=== PATIENT | male | born 1960 | race Caucasian/White ===

== ENCOUNTER 2021-04-25 11:31 | Observation (INO) | payer MEDICAID, SELFPAY ==
[~2021-04-25] VITALS: Ht 177.8 cm; Wt 72.7 kg
--- NOTE | 2021-04-25 11:47 | NUR ---
Placed in room 05 . Placed on baggage clerk, blood pressure machine and pulse oximeter. To gown for exam. Side rails up.
[2021-04-25 11:48] VITALS: BP_SYST 108
--- NOTE | 2021-04-25 12:10 | NUR ---
Pt brought by , A&Ox4, ambulatory, pt presents to ER with SOB, cough, congestion x 7 days and getting worse today, pt states he did not have covid vaccine , O2 90% roomair,temp 101.0, pt follows commands, skin pink and warm, cap refill <3, will cont to monitor.
--- NOTE | 2021-04-25 12:20 | NUR ---
Pt placed on 2L NC since O2 89%, notified
[2021-04-25 12:39] LABS: CALCIUM 8.1 mg/dL (8.4-11.0); CREATININE 1.02 mg/dL (0.55-1.30)
[2021-04-25 12:45] LABS: ALBUMIN 2.5 g/dL (3.4-4.8); TOTAL BILIRUBIN 0.7 mg/dL (0.0-1.0)
--- NOTE | 2021-04-25 13:36 | NUR ---
Dr Galvan evaluating patient at bedside
--- NOTE | 2021-04-25 14:45 | NUR ---
Pt A&Ox4, resquesting requesting water at this time, VSS, pt on NC 2 L saturation 94% at this time
[2021-04-25] MEDS ORDERED: AZITHROMYCIN 250 MG TABLET PO ONE (15:45)
[2021-04-25] MEDS ORDERED: LORazepam 2 MG/ML VIAL IVP PRN (15:45)
[2021-04-25] MEDS ORDERED: POTASSIUM CHLORIDE 20 MEQ TAB.PRT.SR PO PRN (15:45)
[2021-04-25] MEDS ORDERED: MUPIROCIN 2% TOPICAL OINTMENT 22 GM NS PRN (15:45)
[2021-04-25] MEDS ORDERED: ONDANSETRON HCL 4 MG/2 ML VIAL IVP PRN (15:45)
[2021-04-25] MEDS ORDERED: NACL 0.9% 1,000 ML IV ONE (15:45)
[2021-04-25] MEDS ORDERED: ZOLPIDEM TARTRATE 5 MG TABLET PO PRN (15:45)
[2021-04-25] MEDS ORDERED: MORPHINE 2 MG/ML INJ. SYRINGE IVP PRN ×2 (15:45)
[2021-04-25] MEDS ORDERED: DOCUSATE SODIUM 100 MG CAPSULE PO PRN (15:45)
[2021-04-25] MEDS ORDERED: MAGNESIUM SULFATE 50 ML IV PRN (15:45)
[2021-04-25] MEDS: DECADRON 4 MG TABLET PO SCH (16:24)
[2021-04-25 16:36] LABS: HEMATOCRIT 37.7 % (36-54); HEMOGLOBIN 13.4 g/dL (14.0-18.0); MEAN CORPUSCULAR HEMOGLOBIN 35 pg (27-31); MEAN CORPUSCULAR HGB CONC 36 % (32-36); MEAN CORPUSCULAR VOLUME 99 fL (79.0-98.0); PLATELET COUNT (AUTO) 80 K/uL (130-430); RED BLOOD CELL COUNT(AUTO) 3.79 MIL/uL (4.2-6.2); RED CELL DISTRIBUTION WIDTH 13.6 % (9.0-15.0); WHITE BLOOD COUNT (AUTO) 3.6 K/uL (4.8-10.8)
--- NOTE | 2021-04-25 17:38 | NUR ---
Oxygen increased 3 L NC since O2 90% at this time, well tolerated
--- NOTE | 2021-04-25 17:40 | NUR ---
Pt A&Ox4, afebrile, skin pink and warm, will cont to monitor.
[2021-04-25 18:06] LABS: BAND % (MANUAL) 12 % (0-6); BASOPHILS % (MANUAL) 0 % (0-2); EOSINOPHILS % (MANUAL) 0 % (0-7); LYMPHOCYTES % (MANUAL) 9 % (20-46); MONOCYTES % (MANUAL) 2 % (0-11)
--- NOTE | 2021-04-25 19:40 | NUR ---
Note sugey in ED - 04/25/21 at 2208 by SDEDCA Continue monitoring SBP to keep above 90, Levophed IV gtt standing by
--- NOTE | 2021-04-25 19:45 | NUR ---
VSS no s/s of acute distress O2 sat kept above 92% on 3 L NC
--- NOTE | 2021-04-25 21:05 | NUR ---
Transfer to Tele via ACLS protocol. Licensed nurse present. IV present no signs or symptoms of infiltration.
--- NOTE | 2021-04-25 21:05 | NUR ---
ADMISSION NOTE Received patient from ER via nick, received report from Edwardo LOPEZ. Patient admitted with diagnosis of Covid Pneumonia. Patient oriented to hospital routine, call light, toileting and safety-patient verbalized understanding.
--- NOTE | 2021-04-25 21:05 | NUR ---
Patient will be admitted to care of Dr. Neff. Admitted to Tele unit. Will go to room 127. Belongings list completed. Complete and up to date summary report printed. SBAR report to be given at bedside with opportunity for questions.
[2021-04-25 21:10] VITALS: BP_SYST 137
--- NOTE | 2021-04-25 22:10 | NUR ---
INITIAL NOTE PATIENT IS STABLE AND LAYING IN BED. PT IS ON 2L NC. CALL LIGHT IN REACH. PATIENT SUCCESSFULLY DEMONSTRATES USAGE OF CALL LIGHT. BED IS LOCKED AND AT THE LOWEST POSITION. PATIENT EDUCATED ON BED ALARM, PT REFUSED. WILL CONTINUE TO EDUCATE. FALL, SAFETY, ASPIRATION, AND RESPIRATORY PRECAUTIONS WILL BE IN PLACE THROUGHOUT THE SHIFT. PLAN OF CARE IS DISCUSSED WITH PATIENT. Addendum: 04/26/21 at 0108 by Fiona Aguilera RN PT IS ON NS IV @100 ONE TIME DOSE FROM THE ER.
--- NOTE | 2021-04-25 22:15 | NUR ---
CONSULTATION PAGED/CALLED Reason for Consultation: COVID PNA Person Who was Notified:FLACO Consulting Physician: FRANCESCA Voice Pathologist Specialty: ID Ordering Physician: ENEIDA
[2021-04-26 00:12] VITALS: BP_SYST 113
[2021-04-26 04:34] VITALS: BP_SYST 113
--- NOTE | 2021-04-26 06:12 | NUR ---
closing note patient is stable and laying in bed. no s/s of respiratory distress noted. call light in reach. bed is locked, alarmed, and at the lowest position. fall, safety, aspiration, and respiratory precautions has been in place throughout the shift. will continue to monitor until sbar report is endorsed to am nurse.
[2021-04-26 06:52] LABS: BASOPHILS % (AUTO) 0.1 % (0.0-2.0); HEMOGLOBIN 13.3 g/dL (14.0-18.0); LYMPHOCYTES # (AUTO) 0.1 K/uL (1.0-5.5); LYMPHOCYTES % (AUTO) 3.5 % (20.5-51.5); MEAN CORPUSCULAR HEMOGLOBIN 35 pg (27-31); MEAN CORPUSCULAR HGB CONC 35 % (32-36); MEAN CORPUSCULAR VOLUME 99 fL (79.0-98.0); MONOCYTES % (AUTO) 1.3 % (1.7-9.3); NEUTROPHILS # (AUTO) 3.5 K/uL (1.8-7.7); NEUTROPHILS % (AUTO) 95.1 % (40.0-70.0); PLATELET COUNT (AUTO) 90 K/uL (130-430); RED BLOOD CELL COUNT(AUTO) 3.82 MIL/uL (4.2-6.2); RED CELL DISTRIBUTION WIDTH 13.8 % (9.0-15.0); WHITE BLOOD COUNT (AUTO) 3.7 K/uL (4.8-10.8)
[2021-04-26 07:21] LABS: CALCIUM 8.3 mg/dL (8.4-11.0); CREATININE 0.85 mg/dL (0.55-1.30); POTASSIUM 4.1 mmol/L (3.5-5.1)
[2021-04-26 08:34] VITALS: BP_SYST 138
[2021-04-26] MEDS: AZITHROMYCIN 250 MG TABLET PO SCH (08:46)
[2021-04-26] MEDS: CHOLECALCIFEROL (VITAMIN D3) 2,000 UNIT TABLET PO SCH (08:47)
[2021-04-26] MEDS: ACETAMINOPHEN 325 MG TABLET PO PRN ×2 (08:47→19:48)
[2021-04-26] MEDS: ASCORBIC ACID 500 MG TABLET PO SCH (08:47)
[2021-04-26] MEDS ORDERED: ENOXAPARIN SODIUM 40 MG/0.4 ML SYRINGE SUBCUT SCH (09:00)
[2021-04-26 09:19] LABS: ERYTHROCYTE SEDIMENTATION RATE 86 MM/HR (0-15)
[2021-04-26 10:30] LABS: C-REACTIVE PROTEIN QUANT 14.4 mg/dL (0-0.5)
[2021-04-26] MEDS: cefTRIAXone 1 GM in D5W 50 ML IV SCH (11:21)
[2021-04-26 12:00] VITALS: BP_SYST 125
[2021-04-26 16:00] VITALS: BP_SYST 133
--- NOTE | 2021-04-26 17:00 | NUR ---
INFORMED INFORMED DR MA THAT PATIENT IS REFUSING MEDICATION
[2021-04-26] MEDS: DECADRON 4 MG TABLET PO SCH (18:23)
--- NOTE | 2021-04-26 19:15 | NUR ---
OPENING NOTES Patient resting in bed - no s/s pain or distress noted. Respirations even and unlabored - head of bed elevated. IV site patent - no s/s redness, infection, or infiltration. Bed locked and in lowest position. Call light within reach.
[2021-04-26] MEDS: APIXABAN 2.5 MG TABLET PO SCH (20:39)
[2021-04-26 21:37] VITALS: BP_SYST 107
--- NOTE | 2021-04-26 23:20 | NUR ---
PATIENT IV OUT Patient states "IV was stuck on bed rail and I tugged on it." Patient asked if it was ok to insert another IV site at the time - patient states "Do it tomorrow let the next shift handle it." Asked if it was okay to insert around morning time instead. Patient stated ok. Will attempt IV insertion at later time this shift.
[2021-04-27] VITALS: BP_SYST 112
--- NOTE | 2021-04-27 02:00 | NUR ---
ROUNDING NOTES Patient resting in bed - no s/s pain or distress noted. Respirations even and unlabored - head of bed elevated. IV site patent - no s/s redness, infection, or infiltration. Bed locked and in lowest position. Call light within reach
--- NOTE | 2021-04-27 05:42 | NUR ---
NEW IV INSERTED RFA 22G.
[2021-04-27 06:41] LABS: HEMATOCRIT 38.2 % (36-54); HEMOGLOBIN 13.3 g/dL (14.0-18.0); LYMPHOCYTES # (AUTO) 0.1 K/uL (1.0-5.5); LYMPHOCYTES % (AUTO) 3.5 % (20.5-51.5); MEAN CORPUSCULAR HEMOGLOBIN 35 pg (27-31); MEAN CORPUSCULAR HGB CONC 35 % (32-36); MEAN CORPUSCULAR VOLUME 100 fL (79.0-98.0); MONOCYTES # (AUTO) 0.1 K/uL (0.0-1.0); MONOCYTES % (AUTO) 2.1 % (1.7-9.3); NEUTROPHILS # (AUTO) 3.5 K/uL (1.8-7.7); NEUTROPHILS % (AUTO) 94.4 % (40.0-70.0); PLATELET COUNT (AUTO) 110 K/uL (130-430); RED BLOOD CELL COUNT(AUTO) 3.81 MIL/uL (4.2-6.2); RED CELL DISTRIBUTION WIDTH 14.1 % (9.0-15.0); WHITE BLOOD COUNT (AUTO) 3.7 K/uL (4.8-10.8)
[2021-04-27 07:00] VITALS: BP_SYST 110
[2021-04-27 08:00] VITALS: BP_SYST 120
[2021-04-27 08:19] LABS: CALCIUM 8.2 mg/dL (8.4-11.0); CREATININE 0.83 mg/dL (0.55-1.30); TOTAL BILIRUBIN 0.4 mg/dL (0.0-1.0)
--- NOTE | 2021-04-27 08:30 | NUR ---
NURSE REPORT REPORT OBTAINED FROM HIMA NURSE BARBARA AT 0745 AND THIS NURSE ASSUME CARE OF PATIENT. RECEIVED PATIENT AWAKE AND ALERT. VSS. AFEB. NO C/O PAIN OR DISCOMFORT. TELE MONITOR SHOWS SR 63.
[2021-04-27] MEDS ORDERED: ZIT250 PO (08:33)
[2021-04-27] MEDS ORDERED: DEXA6TAB5 PO (08:33)
[2021-04-27] MEDS ORDERED: APIX2.5T PO (08:33)
[2021-04-27] MEDS ORDERED: ASCO500T20 PO (08:33)
[2021-04-27 08:41] LABS: C-REACTIVE PROTEIN QUANT 23.1 mg/dL (0-0.5)
[2021-04-27] MEDS: cefTRIAXone 1 GM in D5W 50 ML IV SCH (09:33)
[2021-04-27] MEDS: AZITHROMYCIN 250 MG TABLET PO SCH (09:33)
[2021-04-27] MEDS: ASCORBIC ACID 500 MG TABLET PO SCH (09:33)
[2021-04-27] MEDS: CHOLECALCIFEROL (VITAMIN D3) 2,000 UNIT TABLET PO SCH (09:33)
[2021-04-27] MEDS: APIXABAN 2.5 MG TABLET PO SCH (10:06)
[2021-04-27 10:59] LABS: ERYTHROCYTE SEDIMENTATION RATE 87 MM/HR (0-15)
[2021-04-27] MEDS ORDERED: IVERMECTIN 3 MG TABLET PO ONE (11:30)
[2021-04-27 14:00] VITALS: BP_SYST 110
--- NOTE | 2021-04-27 14:06 | NUR ---
NURSE NOTES VS AT 1400- 97.4f- 74-18, BP 110/66, O2 SAT 89% WITH 3 L/MIN PER NASAL CANNULA. TAKEN OFF O2- RA AT 1402- HR 72, RESP 18; O2 SAT 88%. AT 1404, AMBULATING, O2 SAT 87%, HR 74, RESP 18. AT 1406, RESTING AFTER AMBULATING- O2 SAT 83%, HR 73, 18.
--- NOTE | 2021-04-27 15:14 | NUR ---
INFORMED WALI ORTIZ TO NOTIFY JOHN MART THAT PT IS OFF MONITOR.
[2021-04-27] MEDS: DECADRON 4 MG TABLET PO SCH ×2 (15:45→16:17)
[2021-04-27 16:00] VITALS: BP_SYST 112
--- NOTE | 2021-04-27 16:57 | NUR ---
CM note: the pt is on Oxygen 3L NC sat 83% at rest.
--- NOTE | 2021-04-27 19:20 | NUR ---
NURSE REPORT REPORT GIVEN TO NIGHT NURSE SHALINI TO ASSUME CARE OF PATIENT. SBAR GIVEN AND ALL QUESTIONS ANSWERED.
[2021-04-27 23:00] VITALS: BP_SYST 120
--- NOTE | 2021-04-27 23:07 | NUR ---
Discharge Summary Pt A/Ox4. Sating 90% on 3L nc. Discharge instructions explained, pt verbalized understanding. Home O2 delivered. All questions answered. Son picked up pt to return home. NR, RN
--- NOTE | 2021-05-08 15:43 | NUR ---
IV ADMINISTRATION END TIME (Observation Patients ONLY): LATE ENTRY: IVPB of Ceftriaxone started at 11:21 on 04/26 and ended at 11:21 IVPB of Ceftriaxone started at 09:33 on 04/27 and ended at 10:00 IV infusion of NS 100ml /hour started at 16:24 on 04/25 and ended at 23:00 prior to patient discharge.
== END 2021-04-27 22:40 | disposition home or self-care (01) ==
LOC: SED 11:31 → STU 15:41
PROVIDERS: ADMIT General Practice; ATTEND General Practice
DX: U07.1 COVID-19 (principal); J12.82 Pneumonia due to coronavirus disease 2019; A41.89 Other specified sepsis; J96.91 Respiratory failure, unspecified with hypoxia; D69.6 Thrombocytopenia, unspecified; E87.1 Hypo-osmolality and hyponatremia; E44.0 Moderate protein-calorie malnutrition; D72.825 Bandemia; R79.89 Other specified abnormal findings of blood chemistry; Z79.899 Other long term (current) drug therapy
CPT/HCPCS: 36415 ×3; 71045; 80048; 80053 ×2; 83036; 83605; 83735 ×2; 83880; 84145 ×2; 84484; 85007; 85025 ×2; 85027; 85379 ×3; 85651 ×2; 86140 ×2; 86710; 86803; 87040; 87426; 93005; 96361; 96365; 96376; 99291; G0378 ×3; J0696 ×2; J7050 ×2; J7060 ×2; J8540 ×3; Q0144 ×3; U0003; 96366

== ENCOUNTER 2021-04-30 15:33 | Inpatient (IN) | payer MEDICAID, SELFPAY ==
[~2021-04-30] VITALS: Ht 177.8 cm; Wt 69.9 kg
[~2021-04-30 15:33] MED LIST: APIX2.5T PO; ASCO500T20 PO; DEXA6TAB5 PO; ZIT250 PO
[2021-04-30 15:35] VITALS: BP_SYST 118
[2021-04-30] MEDS ORDERED: DEXAMETHASONE SOD PHOSPHATE 4 MG/ML VIAL IVP ONE (15:45)
[2021-04-30 16:25] LABS: BASOPHILS % (AUTO) 0.1 % (0.0-2.0); EOSINOPHILS # (AUTO) 0.1 K/uL (0.0-0.4); HEMATOCRIT 38.7 % (36-54); HEMOGLOBIN 13.5 g/dL (14.0-18.0); LYMPHOCYTES # (AUTO) 0.4 K/uL (1.0-5.5); LYMPHOCYTES % (AUTO) 14.2 % (20.5-51.5); MEAN CORPUSCULAR HEMOGLOBIN 35 pg (27-31); MEAN CORPUSCULAR HGB CONC 35 % (32-36); MEAN CORPUSCULAR VOLUME 101 fL (79.0-98.0); MONOCYTES % (AUTO) 1.3 % (1.7-9.3); NEUTROPHILS # (AUTO) 2.1 K/uL (1.8-7.7); NEUTROPHILS % (AUTO) 82.4 % (40.0-70.0); PLATELET COUNT (AUTO) 187 K/uL (130-430); RED BLOOD CELL COUNT(AUTO) 3.84 MIL/uL (4.2-6.2); WHITE BLOOD COUNT (AUTO) 2.6 K/uL (4.8-10.8)
[2021-04-30 16:45] LABS: ANION GAP 8 (5-15); CALCIUM 7.7 mg/dL (8.4-11.0); CHLORIDE 100 mmol/L (98-107); CREATININE 0.94 mg/dL (0.55-1.30); GLUCOSE 136 mg/dL (70-99); POTASSIUM 3.9 mmol/L (3.5-5.1); SODIUM SERUM 134 mmol/L (136-145); UREA NITROGEN, BLOOD 21 mg/dL (8-21)
[2021-04-30 16:50] LABS: ALANINE AMINOTRANSFERASE 89 U/L (12-78); ALBUMIN 1.9 g/dL (3.4-4.8); ASPARTATE AMINOTRANSFERASE 47 U/L (10-37); TOTAL BILIRUBIN 0.3 mg/dL (0.0-1.0)
[2021-04-30 16:52] LABS: GFR AFRICAN AMERICAN 105 mL/min (>90)
[2021-04-30 17:19] LABS: C-REACTIVE PROTEIN QUANT 14.9 mg/dL (0-0.5)
[2021-04-30] MEDS ORDERED: KCL 20 mEq in D5NS 1000 mL 1,000 ML IV ONE (20:05)
[2021-04-30] MEDS: KCL 20 mEq in D5NS 1000 mL 1,000 ML IV SCH (20:14)
[2021-04-30 21:00] VITALS: BP_SYST 121
[2021-04-30 22:00] VITALS: BP_SYST 124
[2021-04-30] MEDS ORDERED: cefTRIAXone 1 GM in D5W 50 ML IV SCH (22:15)
[2021-04-30] MEDS ORDERED: ACETAMINOPHEN 325 MG TABLET PO PRN (22:30)
[2021-04-30 23:00] VITALS: BP_SYST 132
[2021-04-30] MEDS ORDERED: cefTRIAXone 1 GM VIAL ONE (23:08)
[2021-04-30] MEDS ORDERED: AZITHROMYCIN 500 MG/VIAL (ZITHROMAX) IV ONE (23:08)
[2021-04-30] MEDS: AZITHROMYCIN 500 MG in NS 250 ML IV SCH (23:20)
[2021-04-30] MEDS: CHOLECALCIFEROL (VITAMIN D3) 5,000 UNIT TABLET PO SCH (23:21)
[2021-04-30] MEDS: ASCORBIC ACID 500 MG TABLET PO SCH (23:21)
[2021-04-30] MEDS: ENOXAPARIN SODIUM 40 MG/0.4 ML SYRINGE SUBCUT SCH (23:27)
[2021-05-01] VITALS (25 sets, daily range): BP systolic 96–138
[2021-05-01] MEDS: KCL 20 mEq in D5NS 1000 mL 1,000 ML IV SCH ×2 (04:30→17:55)
[2021-05-01 06:58] LABS: BASOPHILS % (AUTO) 0.1 % (0.0-2.0); EOSINOPHILS % (AUTO) 0.1 % (0.0-4.0); HEMATOCRIT 37.4 % (36-54); HEMOGLOBIN 12.8 g/dL (14.0-18.0); LYMPHOCYTES # (AUTO) 0.2 K/uL (1.0-5.5); LYMPHOCYTES % (AUTO) 8.1 % (20.5-51.5); MEAN CORPUSCULAR HEMOGLOBIN 34 pg (27-31); MEAN CORPUSCULAR HGB CONC 34 % (32-36); MEAN CORPUSCULAR VOLUME 101 fL (79.0-98.0); MONOCYTES % (AUTO) 1.6 % (1.7-9.3); NEUTROPHILS # (AUTO) 2.1 K/uL (1.8-7.7); NEUTROPHILS % (AUTO) 90.1 % (40.0-70.0); PLATELET COUNT (AUTO) 146 K/uL (130-430); RED BLOOD CELL COUNT(AUTO) 3.72 MIL/uL (4.2-6.2); RED CELL DISTRIBUTION WIDTH 14.1 % (9.0-15.0); WHITE BLOOD COUNT (AUTO) 2.3 K/uL (4.8-10.8)
[2021-05-01] MEDS: ALBUTEROL MDI INHALATION 8 GM INH INH SCH ×3 (07:00→15:55)
[2021-05-01 07:42] LABS: CALCIUM 8.2 mg/dL (8.4-11.0); CREATININE 0.76 mg/dL (0.55-1.30); POTASSIUM 4.6 mmol/L (3.5-5.1)
[2021-05-01] MEDS: CHOLECALCIFEROL (VITAMIN D3) 5,000 UNIT TABLET PO SCH (09:07)
[2021-05-01] MEDS: ASCORBIC ACID 500 MG TABLET PO SCH ×2 (09:07→21:43)
[2021-05-01] MEDS: DEXAMETHASONE SOD PHOSPHATE 10 MG/ML VIAL IVP SCH (09:08)
[2021-05-01] MEDS: ENOXAPARIN SODIUM 40 MG/0.4 ML SYRINGE SUBCUT SCH ×2 (09:09→21:44)
[2021-05-01] MEDS: FLUCONAZOLE 200 mg/ NS 100 ML IV SCH (12:13)
[2021-05-01] MEDS: PIPERACILLIN/TAZO 4.5GM/DEX-IS 100 ML IV SCH ×2 (17:55→21:46)
[2021-05-01] MEDS: AZITHROMYCIN 500 MG in NS 250 ML IV SCH (21:43)
[2021-05-02] VITALS (24 sets, daily range): BP systolic 92–147
[2021-05-02] MEDS: KCL 20 mEq in D5NS 1000 mL 1,000 ML IV SCH ×2 (05:44→12:44)
[2021-05-02] MEDS: PIPERACILLIN/TAZO 4.5GM/DEX-IS 100 ML IV SCH ×3 (05:44→22:00)
[2021-05-02] MEDS: ALBUTEROL MDI INHALATION 8 GM INH INH SCH ×4 (08:39→20:46)
[2021-05-02] MEDS: CHOLECALCIFEROL (VITAMIN D3) 5,000 UNIT TABLET PO SCH (09:23)
[2021-05-02] MEDS: ASCORBIC ACID 500 MG TABLET PO SCH ×2 (09:23→21:13)
[2021-05-02] MEDS: DEXAMETHASONE SOD PHOSPHATE 10 MG/ML VIAL IVP SCH (09:23)
[2021-05-02] MEDS: ENOXAPARIN SODIUM 40 MG/0.4 ML SYRINGE SUBCUT SCH ×2 (09:24→21:15)
[2021-05-02] MEDS: FLUCONAZOLE 200 mg/ NS 100 ML IV SCH (11:56)
[2021-05-02] MEDS: AZITHROMYCIN 500 MG in NS 250 ML IV SCH (21:12)
[2021-05-03] VITALS (23 sets, daily range): BP systolic 81–155
[2021-05-03] MEDS ORDERED: KCL 20 mEq in 100 mL (PREMIX) 100 ML IV ONE (03:00)
[2021-05-03] MEDS: KCL 20 mEq in D5NS 1000 mL 1,000 ML IV SCH ×3 (03:10→20:16)
[2021-05-03] MEDS: PIPERACILLIN/TAZO 4.5GM/DEX-IS 100 ML IV SCH ×3 (05:41→22:28)
[2021-05-03] MEDS: CHOLECALCIFEROL (VITAMIN D3) 5,000 UNIT TABLET PO SCH (08:53)
[2021-05-03] MEDS: ASCORBIC ACID 500 MG TABLET PO SCH ×2 (08:53→20:17)
[2021-05-03] MEDS: ENOXAPARIN SODIUM 40 MG/0.4 ML SYRINGE SUBCUT SCH ×2 (08:54→20:17)
[2021-05-03] MEDS: DEXAMETHASONE SOD PHOSPHATE 10 MG/ML VIAL IVP SCH (08:55)
[2021-05-03] MEDS: ALBUTEROL MDI INHALATION 8 GM INH INH SCH ×3 (09:12→15:00)
[2021-05-03] MEDS: FLUCONAZOLE 200 mg/ NS 100 ML IV SCH (15:23)
[2021-05-03] MEDS: AZITHROMYCIN 500 MG in NS 250 ML IV SCH (20:16)
[2021-05-04] VITALS (22 sets, daily range): BP systolic 94–148
[2021-05-04] MEDS: KCL 20 mEq in D5NS 1000 mL 1,000 ML IV SCH ×2 (04:45→20:27)
[2021-05-04] MEDS: PIPERACILLIN/TAZO 4.5GM/DEX-IS 100 ML IV SCH (06:53)
[2021-05-04] MEDS: ALBUTEROL MDI INHALATION 8 GM INH INH SCH ×4 (07:52→22:30)
[2021-05-04] MEDS: ENOXAPARIN SODIUM 40 MG/0.4 ML SYRINGE SUBCUT SCH ×2 (09:00→20:26)
[2021-05-04 09:58] LABS: EOSINOPHILS % (AUTO) 1.2 % (0.0-4.0); HEMATOCRIT 35.1 % (36-54); HEMOGLOBIN 12.1 g/dL (14.0-18.0); LYMPHOCYTES # (AUTO) 0.2 K/uL (1.0-5.5); MEAN CORPUSCULAR HEMOGLOBIN 34 pg (27-31); MEAN CORPUSCULAR HGB CONC 34 % (32-36); MEAN CORPUSCULAR VOLUME 100 fL (79.0-98.0); MONOCYTES % (AUTO) 1.2 % (1.7-9.3); NEUTROPHILS # (AUTO) 3.5 K/uL (1.8-7.7); NEUTROPHILS % (AUTO) 90.6 % (40.0-70.0); PLATELET COUNT (AUTO) 94 K/uL (130-430); RED BLOOD CELL COUNT(AUTO) 3.51 MIL/uL (4.2-6.2); RED CELL DISTRIBUTION WIDTH 14.4 % (9.0-15.0); WHITE BLOOD COUNT (AUTO) 3.9 K/uL (4.8-10.8)
[2021-05-04 10:18] LABS: ALBUMIN 1.8 g/dL (3.4-4.8); CALCIUM 7.8 mg/dL (8.4-11.0); CREATININE 0.94 mg/dL (0.55-1.30); POTASSIUM 3.8 mmol/L (3.5-5.1); TOTAL BILIRUBIN 0.7 mg/dL (0.0-1.0)
[2021-05-04] MEDS: ASCORBIC ACID 500 MG TABLET PO SCH ×2 (10:22→20:25)
[2021-05-04] MEDS: DEXAMETHASONE SOD PHOSPHATE 10 MG/ML VIAL IVP SCH (10:22)
[2021-05-04] MEDS: CHOLECALCIFEROL (VITAMIN D3) 5,000 UNIT TABLET PO SCH (10:22)
[2021-05-04] MEDS: FLUCONAZOLE 200 mg/ NS 100 ML IV SCH (13:08)
[2021-05-04] MEDS: cefTRIAXone 1 GM in D5W 50 ML IV SCH (13:10)
[2021-05-04 16:23] LABS: INR 1.3 (0.80-1.20); PROTHROMBIN TIME 13.9 SECS (9.5-12.5)
[2021-05-04] MEDS: AZITHROMYCIN 500 MG in NS 250 ML IV SCH (20:26)
[2021-05-05] VITALS (21 sets, daily range): BP systolic 90–128
[2021-05-05] MEDS: ALBUTEROL MDI INHALATION 8 GM INH INH SCH ×3 (07:12→19:58)
[2021-05-05 08:03] LABS: BASOPHILS % (AUTO) 0.8 % (0.0-2.0); EOSINOPHILS % (AUTO) 0.3 % (0.0-4.0); HEMOGLOBIN 12.5 g/dL (14.0-18.0); LYMPHOCYTES # (AUTO) 0.4 K/uL (1.0-5.5); LYMPHOCYTES % (AUTO) 10.6 % (20.5-51.5); MEAN CORPUSCULAR HEMOGLOBIN 34 pg (27-31); MEAN CORPUSCULAR HGB CONC 34 % (32-36); MEAN CORPUSCULAR VOLUME 100 fL (79.0-98.0); MONOCYTES % (AUTO) 0.9 % (1.7-9.3); NEUTROPHILS # (AUTO) 3.6 K/uL (1.8-7.7); NEUTROPHILS % (AUTO) 87.4 % (40.0-70.0); PLATELET COUNT (AUTO) 86 K/uL (130-430); RED BLOOD CELL COUNT(AUTO) 3.69 MIL/uL (4.2-6.2); WHITE BLOOD COUNT (AUTO) 4.1 K/uL (4.8-10.8)
[2021-05-05] MEDS: CHOLECALCIFEROL (VITAMIN D3) 5,000 UNIT TABLET PO SCH (08:05)
[2021-05-05] MEDS: DEXAMETHASONE SOD PHOSPHATE 10 MG/ML VIAL IVP SCH (08:05)
[2021-05-05] MEDS: ASCORBIC ACID 500 MG TABLET PO SCH ×2 (08:05→21:23)
[2021-05-05 08:17] LABS: CALCIUM 8.4 mg/dL (8.4-11.0); CREATININE 0.74 mg/dL (0.55-1.30)
[2021-05-05 08:22] LABS: ALBUMIN 1.9 g/dL (3.4-4.8); TOTAL BILIRUBIN 0.5 mg/dL (0.0-1.0)
[2021-05-05] MEDS: ENOXAPARIN SODIUM 40 MG/0.4 ML SYRINGE SUBCUT SCH ×2 (09:00→21:00)
[2021-05-05] MEDS: KCL 20 mEq in D5NS 1000 mL 1,000 ML IV SCH ×2 (09:39→16:15)
[2021-05-05] MEDS: FLUCONAZOLE 200 mg/ NS 100 ML IV SCH (11:20)
[2021-05-05] MEDS: cefTRIAXone 1 GM in D5W 50 ML IV SCH (11:21)
[2021-05-05] MEDS ORDERED: IVERMECTIN 3 MG TABLET PO ONE (11:30)
[2021-05-06] VITALS (19 sets, daily range): BP systolic 98–133
[2021-05-06] MEDS: KCL 20 mEq in D5NS 1000 mL 1,000 ML IV SCH ×2 (07:15→23:46)
[2021-05-06] MEDS: ALBUTEROL MDI INHALATION 8 GM INH INH SCH ×4 (07:23→20:17)
[2021-05-06 07:46] LABS: BASOPHILS % (AUTO) 0.2 % (0.0-2.0); EOSINOPHILS % (AUTO) 0.4 % (0.0-4.0); HEMATOCRIT 33.3 % (36-54); HEMOGLOBIN 11.6 g/dL (14.0-18.0); LYMPHOCYTES # (AUTO) 0.4 K/uL (1.0-5.5); LYMPHOCYTES % (AUTO) 10.5 % (20.5-51.5); MEAN CORPUSCULAR HEMOGLOBIN 35 pg (27-31); MEAN CORPUSCULAR HGB CONC 35 % (32-36); MEAN CORPUSCULAR VOLUME 99 fL (79.0-98.0); NEUTROPHILS # (AUTO) 3.4 K/uL (1.8-7.7); NEUTROPHILS % (AUTO) 87.9 % (40.0-70.0); PLATELET COUNT (AUTO) 73 K/uL (130-430); RED BLOOD CELL COUNT(AUTO) 3.36 MIL/uL (4.2-6.2); WHITE BLOOD COUNT (AUTO) 3.8 K/uL (4.8-10.8)
[2021-05-06 08:29] LABS: ALBUMIN 1.8 g/dL (3.4-4.8); C-REACTIVE PROTEIN QUANT 6.7 mg/dL (0-0.5); CALCIUM 7.7 mg/dL (8.4-11.0); CREATININE 0.72 mg/dL (0.55-1.30); TOTAL BILIRUBIN 0.6 mg/dL (0.0-1.0)
[2021-05-06] MEDS: BUDESONIDE 0.5 MG/2 ML AMPUL.NEB INH SCH ×2 (08:39→20:16)
[2021-05-06] MEDS: ENOXAPARIN SODIUM 40 MG/0.4 ML SYRINGE SUBCUT SCH ×2 (08:39→21:00)
[2021-05-06] MEDS: ASCORBIC ACID 500 MG TABLET PO SCH ×2 (08:47→22:24)
[2021-05-06] MEDS: CHOLECALCIFEROL (VITAMIN D3) 5,000 UNIT TABLET PO SCH (08:48)
[2021-05-06] MEDS: DEXAMETHASONE SOD PHOSPHATE 10 MG/ML VIAL IVP SCH (08:48)
[2021-05-06] MEDS ORDERED: BUDESONIDE 0.5 MG/2 ML AMPUL.NEB ONE (09:56)
[2021-05-06] MEDS: FLUCONAZOLE 200 mg/ NS 100 ML IV SCH (12:00)
[2021-05-06] MEDS: cefTRIAXone 1 GM in D5W 50 ML IV SCH (12:00)
[2021-05-07] VITALS (22 sets, daily range): BP systolic 95–139
[2021-05-07 07:16] LABS: BASOPHILS % (AUTO) 0.2 % (0.0-2.0); EOSINOPHILS # (AUTO) 0.1 K/uL (0.0-0.4); EOSINOPHILS % (AUTO) 1.6 % (0.0-4.0); HEMATOCRIT 34.2 % (36-54); HEMOGLOBIN 11.8 g/dL (14.0-18.0); LYMPHOCYTES # (AUTO) 0.4 K/uL (1.0-5.5); LYMPHOCYTES % (AUTO) 13.2 % (20.5-51.5); MEAN CORPUSCULAR HEMOGLOBIN 34 pg (27-31); MEAN CORPUSCULAR HGB CONC 35 % (32-36); MEAN CORPUSCULAR VOLUME 99 fL (79.0-98.0); MONOCYTES % (AUTO) 0.9 % (1.7-9.3); NEUTROPHILS # (AUTO) 2.9 K/uL (1.8-7.7); NEUTROPHILS % (AUTO) 84.1 % (40.0-70.0); PLATELET COUNT (AUTO) 79 K/uL (130-430); RED BLOOD CELL COUNT(AUTO) 3.46 MIL/uL (4.2-6.2); RED CELL DISTRIBUTION WIDTH 14.6 % (9.0-15.0); WHITE BLOOD COUNT (AUTO) 3.4 K/uL (4.8-10.8)
[2021-05-07 08:24] LABS: ALBUMIN 1.9 g/dL (3.4-4.8); CALCIUM 7.7 mg/dL (8.4-11.0); CREATININE 0.72 mg/dL (0.55-1.30); POTASSIUM 3.9 mmol/L (3.5-5.1); TOTAL BILIRUBIN 0.5 mg/dL (0.0-1.0)
[2021-05-07] MEDS: CHOLECALCIFEROL (VITAMIN D3) 5,000 UNIT TABLET PO SCH (08:29)
[2021-05-07] MEDS: ASCORBIC ACID 500 MG TABLET PO SCH ×2 (08:29→20:51)
[2021-05-07] MEDS: ENOXAPARIN SODIUM 40 MG/0.4 ML SYRINGE SUBCUT SCH ×2 (08:30→20:52)
[2021-05-07] MEDS: DEXAMETHASONE SOD PHOSPHATE 10 MG/ML VIAL IVP SCH (08:31)
[2021-05-07] MEDS: ALBUTEROL MDI INHALATION 8 GM INH INH SCH ×4 (09:06→22:41)
[2021-05-07] MEDS: BUDESONIDE 0.5 MG/2 ML AMPUL.NEB INH SCH ×2 (09:06→22:40)
[2021-05-07] MEDS: FLUCONAZOLE 200 mg/ NS 100 ML IV SCH (10:24)
[2021-05-07] MEDS: cefTRIAXone 1 GM in D5W 50 ML IV SCH (10:25)
[2021-05-07] MEDS: KCL 20 mEq in D5NS 1000 mL 1,000 ML IV SCH (10:25)
[2021-05-08] VITALS (23 sets, daily range): BP systolic 101–136
[2021-05-08] MEDS: KCL 20 mEq in D5NS 1000 mL 1,000 ML IV SCH ×2 (02:40→06:00)
[2021-05-08 06:44] LABS: EOSINOPHILS % (AUTO) 0.2 % (0.0-4.0); HEMATOCRIT 33.4 % (36-54); HEMOGLOBIN 11.5 g/dL (14.0-18.0); LYMPHOCYTES # (AUTO) 0.2 K/uL (1.0-5.5); LYMPHOCYTES % (AUTO) 6.9 % (20.5-51.5); MEAN CORPUSCULAR HEMOGLOBIN 34 pg (27-31); MEAN CORPUSCULAR HGB CONC 35 % (32-36); MEAN CORPUSCULAR VOLUME 99 fL (79.0-98.0); MONOCYTES % (AUTO) 1.1 % (1.7-9.3); NEUTROPHILS # (AUTO) 3.1 K/uL (1.8-7.7); NEUTROPHILS % (AUTO) 91.8 % (40.0-70.0); PLATELET COUNT (AUTO) 76 K/uL (130-430); RED BLOOD CELL COUNT(AUTO) 3.37 MIL/uL (4.2-6.2); RED CELL DISTRIBUTION WIDTH 14.1 % (9.0-15.0); WHITE BLOOD COUNT (AUTO) 3.4 K/uL (4.8-10.8)
[2021-05-08 07:34] LABS: ALBUMIN 1.8 g/dL (3.4-4.8); CREATININE 0.62 mg/dL (0.55-1.30); POTASSIUM 4.2 mmol/L (3.5-5.1); TOTAL BILIRUBIN 0.4 mg/dL (0.0-1.0)
[2021-05-08] MEDS: BUDESONIDE 0.5 MG/2 ML AMPUL.NEB INH SCH ×2 (07:54→19:40)
[2021-05-08] MEDS: ALBUTEROL MDI INHALATION 8 GM INH INH SCH ×4 (07:54→19:41)
[2021-05-08 08:26] LABS: TOTAL IRON BIND. CAPACITY 188 ug/dL (250-450)
[2021-05-08 09:00] LABS: RETICULOCYTE COUNT 1.5 % (0.5-1.5)
[2021-05-08] MEDS: DEXAMETHASONE SOD PHOSPHATE 10 MG/ML VIAL IVP SCH (09:46)
[2021-05-08] MEDS: ASCORBIC ACID 500 MG TABLET PO SCH ×2 (09:46→21:42)
[2021-05-08] MEDS: CHOLECALCIFEROL (VITAMIN D3) 5,000 UNIT TABLET PO SCH (09:47)
[2021-05-08] MEDS ORDERED: ENOXAPARIN SODIUM 40 MG/0.4 ML SYRINGE SUBCUT ONE (11:15)
[2021-05-08 11:37] LABS: C-REACTIVE PROTEIN QUANT 14.1 mg/dL (0-0.5)
[2021-05-08] MEDS: cefTRIAXone 1 GM in D5W 50 ML IV SCH (12:20)
[2021-05-08] MEDS: FLUCONAZOLE 200 mg/ NS 100 ML IV SCH (12:20)
[2021-05-09 06:35] LABS: BASOPHILS % (AUTO) 0.2 % (0.0-2.0); EOSINOPHILS % (AUTO) 0.1 % (0.0-4.0); HEMATOCRIT 29.8 % (36-54); HEMOGLOBIN 10.2 g/dL (14.0-18.0); LYMPHOCYTES # (AUTO) 0.2 K/uL (1.0-5.5); LYMPHOCYTES % (AUTO) 6.8 % (20.5-51.5); MEAN CORPUSCULAR HEMOGLOBIN 34 pg (27-31); MEAN CORPUSCULAR HGB CONC 34 % (32-36); MEAN CORPUSCULAR VOLUME 101 fL (79.0-98.0); MONOCYTES % (AUTO) 0.8 % (1.7-9.3); NEUTROPHILS # (AUTO) 3.2 K/uL (1.8-7.7); NEUTROPHILS % (AUTO) 92.1 % (40.0-70.0); PLATELET COUNT (AUTO) 81 K/uL (130-430); RED BLOOD CELL COUNT(AUTO) 2.96 MIL/uL (4.2-6.2); RED CELL DISTRIBUTION WIDTH 14.4 % (9.0-15.0); WHITE BLOOD COUNT (AUTO) 3.5 K/uL (4.8-10.8)
[2021-05-09 06:44] LABS: INR 1.3 (0.80-1.20); PROTHROMBIN TIME 14.1 SECS (9.5-12.5)
[2021-05-09 07:06] LABS: FOLATE (FOLIC ACID) 7.5 ng/mL (>3.0)
[2021-05-09] MEDS: ALBUTEROL MDI INHALATION 8 GM INH INH SCH ×4 (07:39→20:08)
[2021-05-09] MEDS: BUDESONIDE 0.5 MG/2 ML AMPUL.NEB INH SCH ×2 (07:39→20:08)
[2021-05-09 08:00] VITALS: BP_SYST 101
[2021-05-09 08:37] LABS: ALBUMIN 1.5 g/dL (3.4-4.8); CREATININE 0.6 mg/dL (0.55-1.30); POTASSIUM 3.7 mmol/L (3.5-5.1); TOTAL BILIRUBIN 0.3 mg/dL (0.0-1.0)
[2021-05-09 08:44] LABS: CALCIUM 7.1 mg/dL (8.4-11.0)
[2021-05-09] MEDS ORDERED: ENOXAPARIN SODIUM 40 MG/0.4 ML SYRINGE SUBCUT SCH (09:00)
[2021-05-09] MEDS: ASCORBIC ACID 500 MG TABLET PO SCH ×2 (09:17→21:39)
[2021-05-09] MEDS: CHOLECALCIFEROL (VITAMIN D3) 5,000 UNIT TABLET PO SCH (09:17)
[2021-05-09] MEDS: DEXAMETHASONE SOD PHOSPHATE 10 MG/ML VIAL IVP SCH (09:18)
[2021-05-09] MEDS: cefTRIAXone 1 GM in D5W 50 ML IV SCH (11:58)
[2021-05-09 12:00] VITALS: BP_SYST 112
[2021-05-09 16:00] VITALS: BP_SYST 119
[2021-05-09 19:00] VITALS: BP_SYST 119
[2021-05-09 20:00] VITALS: BP_SYST 119
[2021-05-10 06:30] VITALS: BP_SYST 113
[2021-05-10 06:55] LABS: BASOPHILS % (AUTO) 0.3 % (0.0-2.0); EOSINOPHILS % (AUTO) 0.5 % (0.0-4.0); HEMOGLOBIN 11.4 g/dL (14.0-18.0); LYMPHOCYTES # (AUTO) 0.5 K/uL (1.0-5.5); LYMPHOCYTES % (AUTO) 13.1 % (20.5-51.5); MEAN CORPUSCULAR HEMOGLOBIN 34 pg (27-31); MEAN CORPUSCULAR HGB CONC 35 % (32-36); MEAN CORPUSCULAR VOLUME 99 fL (79.0-98.0); MONOCYTES # (AUTO) 0.1 K/uL (0.0-1.0); MONOCYTES % (AUTO) 1.8 % (1.7-9.3); NEUTROPHILS % (AUTO) 84.3 % (40.0-70.0); PLATELET COUNT (AUTO) 87 K/uL (130-430); RED BLOOD CELL COUNT(AUTO) 3.33 MIL/uL (4.2-6.2); RED CELL DISTRIBUTION WIDTH 14.5 % (9.0-15.0); WHITE BLOOD COUNT (AUTO) 3.6 K/uL (4.8-10.8)
[2021-05-10] MEDS: BUDESONIDE 0.5 MG/2 ML AMPUL.NEB INH SCH ×2 (08:00→19:57)
[2021-05-10] MEDS: ALBUTEROL MDI INHALATION 8 GM INH INH SCH ×4 (08:00→20:21)
[2021-05-10] MEDS: ASCORBIC ACID 500 MG TABLET PO SCH ×2 (09:00→22:03)
[2021-05-10 09:32] VITALS: BP_SYST 111
[2021-05-10] MEDS: DEXAMETHASONE SOD PHOSPHATE 10 MG/ML VIAL IVP SCH (09:46)
[2021-05-10] MEDS: CHOLECALCIFEROL (VITAMIN D3) 5,000 UNIT TABLET PO SCH (09:46)
[2021-05-10] MEDS: ENOXAPARIN SODIUM 40 MG/0.4 ML SYRINGE SUBCUT SCH ×2 (09:46→21:00)
[2021-05-10] MEDS: cefTRIAXone 1 GM in D5W 50 ML IV SCH (12:43)
[2021-05-10 12:46] VITALS: BP_SYST 98
[2021-05-10 17:00] VITALS: BP_SYST 100
[2021-05-10 19:00] VITALS: BP_SYST 127
[2021-05-10 22:50] LABS: BILIRUBIN,URINE NEGATIVE (NEGATIVE); BLOOD, URINE NEGATIVE (NEGATIVE); CLARITY/URINE CLEAR (CLEAR); COLOR,URINE YELLOW (YELLOW); GLUCOSE,URINE NEGATIVE (NEGATIVE); KETONES,URINE NEGATIVE (NEGATIVE); LEUKOCYTE ESTERASE ,URINE NEGATIVE (NEGATIVE); NITRITE, URINE NEGATIVE (NEGATIVE); PROTEIN URINE NEGATIVE (NEGATIVE); UROBILINOGEN,URINE 0.2 (0.2-1.0)
[2021-05-11] VITALS: BP_SYST 137
[2021-05-11] MEDS: ALBUTEROL MDI INHALATION 8 GM INH INH SCH ×5 (08:16→19:25)
[2021-05-11] MEDS: BUDESONIDE 0.5 MG/2 ML AMPUL.NEB INH SCH ×2 (08:16→19:22)
[2021-05-11] MEDS: CHOLECALCIFEROL (VITAMIN D3) 5,000 UNIT TABLET PO SCH (09:52)
[2021-05-11] MEDS: ASCORBIC ACID 500 MG TABLET PO SCH ×2 (09:53→20:21)
[2021-05-11] MEDS: ENOXAPARIN SODIUM 40 MG/0.4 ML SYRINGE SUBCUT SCH ×2 (09:55→20:36)
[2021-05-11 11:37] VITALS: BP_SYST 99
[2021-05-11 17:47] VITALS: BP_SYST 103
[2021-05-12 00:30] VITALS: BP_SYST 113; BP_SYST 117
[2021-05-12 07:11] LABS: BASOPHILS % (AUTO) 0.7 % (0.0-2.0); EOSINOPHILS # (AUTO) 0.1 K/uL (0.0-0.4); EOSINOPHILS % (AUTO) 2.5 % (0.0-4.0); HEMATOCRIT 34.2 % (36-54); HEMOGLOBIN 11.7 g/dL (14.0-18.0); LYMPHOCYTES # (AUTO) 0.4 K/uL (1.0-5.5); LYMPHOCYTES % (AUTO) 11.2 % (20.5-51.5); MEAN CORPUSCULAR HEMOGLOBIN 34 pg (27-31); MEAN CORPUSCULAR HGB CONC 34 % (32-36); MEAN CORPUSCULAR VOLUME 99 fL (79.0-98.0); MONOCYTES % (AUTO) 1.1 % (1.7-9.3); NEUTROPHILS # (AUTO) 3.1 K/uL (1.8-7.7); NEUTROPHILS % (AUTO) 84.5 % (40.0-70.0); PLATELET COUNT (AUTO) 82 K/uL (130-430); RED BLOOD CELL COUNT(AUTO) 3.45 MIL/uL (4.2-6.2); RED CELL DISTRIBUTION WIDTH 14.5 % (9.0-15.0); WHITE BLOOD COUNT (AUTO) 3.6 K/uL (4.8-10.8)
[2021-05-12] MEDS: ALBUTEROL MDI INHALATION 8 GM INH INH SCH ×4 (07:53→20:42)
[2021-05-12] MEDS: BUDESONIDE 0.5 MG/2 ML AMPUL.NEB INH SCH ×2 (07:53→20:42)
[2021-05-12 08:11] VITALS: BP_SYST 102
[2021-05-12] MEDS: CHOLECALCIFEROL (VITAMIN D3) 5,000 UNIT TABLET PO SCH (08:40)
[2021-05-12] MEDS: ASCORBIC ACID 500 MG TABLET PO SCH ×2 (08:40→22:41)
[2021-05-12] MEDS: ENOXAPARIN SODIUM 40 MG/0.4 ML SYRINGE SUBCUT SCH ×2 (08:43→22:41)
[2021-05-12 12:01] VITALS: BP_SYST 105
[2021-05-12 18:52] VITALS: BP_SYST 108
[2021-05-12 20:03] VITALS: BP_SYST 104
[2021-05-13] VITALS: BP_SYST 103
[2021-05-13] MEDS: ALBUTEROL MDI INHALATION 8 GM INH INH SCH ×3 (07:33→15:00)
[2021-05-13] MEDS: BUDESONIDE 0.5 MG/2 ML AMPUL.NEB INH SCH (07:34)
[2021-05-13] MEDS: CHOLECALCIFEROL (VITAMIN D3) 5,000 UNIT TABLET PO SCH (08:39)
[2021-05-13] MEDS: ASCORBIC ACID 500 MG TABLET PO SCH (08:39)
[2021-05-13] MEDS: ENOXAPARIN SODIUM 40 MG/0.4 ML SYRINGE SUBCUT SCH (08:41)
[2021-05-13 08:51] VITALS: BP_SYST 98
[2021-05-13 12:04] VITALS: BP_SYST 94
[2021-05-13 13:55] VITALS: BP_SYST 96
[2021-05-13] MEDS ORDERED: [UNRECOGNIZED DRUG - OTHER] PO (14:30)
[2021-05-13] MEDS ORDERED: ALBMDI INH (14:30)
[2021-05-13] MEDS ORDERED: ZINC SULFATE PO (14:32)
[2021-05-13] MEDS ORDERED: ASCO500T20 PO (14:33)
== END 2021-05-13 16:15 | disposition home health service (06) | DRG 137 ==
LOC: SED 15:33 → SIC 18:29 → STU 05-08 23:01
PROVIDERS: ADMIT Family Medicine; ATTEND Family Medicine
PROC: 5A0955A Assistance with Respiratory Ventilation, Greater than 96 Consecutive Hours, High Flow/Velocity Cannula (ICD-10-PCS; principal; 2021-04-30)
PROC: 02HV33Z Insertion of Infusion Device into Superior Vena Cava, Percutaneous Approach (ICD-10-PCS; 2021-04-30)
DX: U07.1 COVID-19 (principal); J96.01 Acute respiratory failure with hypoxia; J12.82 Pneumonia due to coronavirus disease 2019; R65.20 Severe sepsis without septic shock; A41.9 Sepsis, unspecified organism; D72.819 Decreased white blood cell count, unspecified; D69.59 Other secondary thrombocytopenia; Z91.19 Patient's noncompliance with other medical treatment and regimen
CPT/HCPCS: 36415; 36600; 71045; 80048; 80053; 81003; 82607; 82728; 82746; 82803-TC; 83540; 83550; 83605; 83880; 84484; 85025; 85044; 85379; 85384; 85610-TC; 85730-TC; 86140; 86635; 86710; 87040-TC; 87070-TC; 87081; 87205-TC; 87305; 87449; 93005; 94640; 94664; 94760; 96374; 99285; J0456; J0696; J1100; J1450; J1650; J2543; J3480; J7050; J7060; J7626; U0003

== ENCOUNTER 2021-05-18 09:36 | Emergency (ER) | payer MEDICAID, SELFPAY ==
[~2021-05-18] VITALS: Ht 177.8 cm; Wt 65.3 kg
[~2021-05-18 09:36] MED LIST changes: +ALBMDI INH; -DEXA6TAB5 PO; +ZINC SULFATE PO; -ZIT250 PO; +[UNRECOGNIZED DRUG - OTHER] PO
[2021-05-18 09:45] VITALS: BP_SYST 118
--- NOTE | 2021-05-18 09:45 | NUR ---
Patient to ER bed triage to gown for evaluation. Side rails up.
--- NOTE | 2021-05-18 09:58 | NUR ---
DR CHEN OUT TO TRIAGE ROOM TO EVALUATE PT.
--- NOTE | 2021-05-18 10:15 | NUR ---
Dr Altamirano in to assess
--- NOTE | 2021-05-18 10:45 | NUR ---
Patient given written and verbal discharge instructions and verbalizes understanding. ER MD discussed with patient the results and treatment provided. Patient in stable condition. ID arm band removed. Patient educated on pain management and to follow up with PMD. Pain Scale 2/10 Opportunity for questions provided and answered.
[2021-05-18 10:57] VITALS: BP_SYST 121
== END 2021-05-18 10:45 | disposition home or self-care (01) ==
LOC: SED 09:36
DX: S46.212A Strain of muscle, fascia and tendon of other parts of biceps, left arm, initial encounter (principal); Z79.01 Long term (current) use of anticoagulants; Z79.899 Other long term (current) drug therapy; X50.3XXA Overexertion from repetitive movements, initial encounter; Y93.89 Activity, other specified; Y92.89 Other specified places as the place of occurrence of the external cause; Y99.8 Other external cause status
CPT/HCPCS: 99281